=== PATIENT | male | born 1965 | race Caucasian/White ===

== ENCOUNTER 2017-09-09 07:58 | Day surgery (SDC) | payer OTHER ==
[2017-09-09] MEDS ORDERED: LACTATED RINGERS 1,000 ML IV ONE (08:36)
[2017-09-09] MEDS ORDERED: fentaNYL 100 MCG/2 ML VIAL IVP ONE (09:11)
[2017-09-09] MEDS ORDERED: MIDAZOLAM 2 MG/2 ML VIAL IVP ONE (09:11)
[2017-09-09 10:01] VITALS: BP 109/60
== END 2017-09-09 07:59 | disposition home or self-care (01) ==
LOC: SDS 07:58
PROVIDERS: ATTEND Surgery
PROC: 0DJD8ZZ Inspection of Lower Intestinal Tract, Via Natural or Artificial Opening Endoscopic (ICD-10-PCS; principal; 2017-09-09 09:00)
DX: Z12.11 Encounter for screening for malignant neoplasm of colon (principal); Z86.010 Personal history of colon polyps; K57.30 Diverticulosis of large intestine without perforation or abscess without bleeding
CPT/HCPCS: 45378; J7120